=== PATIENT | male | born 1960 | race Caucasian/White ===

== ENCOUNTER 2020-04-21 12:32 | Outpatient (CLI) | payer OTHER, SELFPAY ==
[2020-04-21 12:50] LABS: Basophils Percent Auto 0.4 % (0.2-1.2); Eosinophils Absolute Auto 0.1 K/mm3 (0-0.3); Eosinophils Percent Auto 1.4 % (0-4.4); Hematocrit 47.1 % (42.0-52.0); Hemoglobin 15.6 g/dL (14.0-18.0); Immature Granulocyte Absolute 0.01 K/mm3 (0.00-0.031); Immature Granulocyte Percent A 0.1 % (0-0.5); Lymphocytes Absolute Auto 1.95 K/mm3 (0.9-3.2); Lymphocytes Percent Auto 24.5 % (18.3-44.2); Mean Corpuscular HGB Conc 33.1 g/dl (32-36); Mean Corpuscular Hemoglobin 29.4 pg (26-34); Mean Corpuscular Volume 88.9 fl (80-100); Mean Platelet Volume 11.3 fl (7.4-10.4); Monocytes Absolute Auto 0.7 K/mm3 (0.1-0.6); Monocytes Percent Auto 8.2 % (2.6-8.5); Neutrophils Absolute Auto 5.2 K/mm3 (1.3-6.7); Neutrophils Percent Auto 65.4 % (45.5-73.1); Platelet Count Result 191 k/mm3 (150-375); Red Cell Distribution Width 12.9 % (11.5-14.5)
[2020-04-21 16:48] LABS: Alanine Aminotransferase 23 U/L (4-50); Albumin Level 4.5 g/dL (3.5-5.1); Alkaline Phosphatase 101 U/L (38-126); Anion Gap 8 mmol/L (8-16); Aspartate Amino Transferase 20 U/L (17-59); Bilirubin,Total 0.7 mg/dL (0.2-1.3); Blood Urea Nitrogen 14 mg/dL (9-20); Calcium 9.4 mg/dL (8.4-10.2); Carbon Dioxide 30 mmol/L (22-30); Chloride 103 mmol/L (98-107); Estimated Glomerular Filt Rate > 60; Glucose 102 mg/dL (75-110); Potassium 4.6 mmol/L (3.4-5.0); Sodium 141 mmol/L (137-145)
== END 2020-04-21 12:33 | disposition home or self-care (01) ==
PROVIDERS: PCP Otolaryngology; Visit Provider Internal Medicine Hematology & Oncology
DX: C76.0 Malignant neoplasm of head, face and neck (principal)
CPT/HCPCS: 36415; 80053; 85025

== ENCOUNTER 2020-05-19 14:28 | Outpatient (CLI) | payer OTHER, SELFPAY ==
--- NOTE | ~2020-05-19 | MR_ITS ---
EXAMINATION: MR pituitary wo/w con EXAM DATE: 05/19/2020 15:37 INDICATION: G93.89 - Other specified disorders of brain. Pituitary mass. TECHNIQUE: Magnetic resonance imaging (MRI) of the brain/brain stem obtained without contrast. Sagit robby T1, axial diffusion, gradient echo (T2*), T1, T2, FLAIR sequences obtained. Patient was then inj ected with 20 cc intravenous Multihance contrast. A pituitary protocol was utilized including dynamic imaging through the pituitary gland during intravenous injection of contrast. Postcontrast whole bra in images obtained. FINDINGS: There is a pituitary mass measuring 1.9 x 1.6 x 2.1 cm, slightly bulging out of the sella turcica laterally but not encasing the internal carotid arteries. This is also slightly displacing th e optic chiasm in a cephalad direction. There is a tiny cystic component within this. Appearance most consistent with pituitary adenoma but craniopharyngioma or other histology not excludable. There are no areas of restricted diffusion to suggest acute infarction. There is no acute hemorrhage seen on the T2*, a hemosiderin sensitive sequence. No intraparenchymal brain mass. The ventricles a re normal in size. There are no extra-axial collections. Flow voids are seen in the cerebral arteri es on the T2-weighted sequences consistent with their expected patency. The orbits are unremarkable. Soft tissue is unremarkable. There are no areas of abnormal enhancement on the post contrast imag es. Mild ethmoid mucoperiosteal thickening. IMPRESSION: 1. Pituitary mass bulging out of sella turcica, most likely adenoma but other histology also possibl e. 2. Otherwise normal brain. Reviewed, dictated and finalized at location A. ECTIVE SIGNAL REPAIRER HELPER IMPRESSION: 1. Pituitary mass bulging out of sella turcica, most likely adenoma but other histology also possible. 2. Otherwise normal brain.
== END 2020-05-19 14:29 | disposition home or self-care (01) ==
PROVIDERS: Visit Provider Radiology Radiation Oncology
DX: G93.89 Other specified disorders of brain (principal)
CPT/HCPCS: 70553; A9577

== ENCOUNTER 2020-08-25 12:55 | Outpatient (CLI) | payer OTHER, SELFPAY ==
--- NOTE | ~2020-08-25 | PE_ITS ---
EXAMINATION: PET skull to mid thigh DATE: 08/25/2020 15:05 INDICATION: Malignant neoplasm of border of tongue. TECHNIQUE: Blood glucose level was 96 mg/dL. 11.646 mCi of 18-fluorodeoxyglucose (18-FDG) was adminis tered i.v. Low dose computed tomography (CT) images were acquired from the base of the brain to the p roximal thighs for attenuation correction and anatomic localization. Automated exposure control was e mployed. Dose-length product (DLP) was 1149 mGy-cm. Positron emission tomography (PET) images were ac quired in the same distribution. COMPARISON: CT abdomen and pelvis 07/27/2013, brain MRI 05/19/2020 FINDINGS: Head/neck: There is a sellar and suprasellar mass measuring 2.0 cm with maximum SUV of 11.7. There is a 5.7 x 5.5 cm cystic adriano mass in the high right internal jugular chain with maximum SUV of 7.6. T here is increased activity in the right nasopharynx, palatine tonsils, sublingual glands, and right s ubmandibular gland without CT correlate, likely physiologic. There is increased activity in the oral cavity with changes of extraction of many teeth. There is a 2.4 cm nodule in right thyroid lobe with maximum SUV of 2.7. Chest: There is no lung disease or pleural effusion. The heart size is normal. No pericardial effusio n. There is bilateral gynecomastia. Calcified left hilar lymph nodes are consistent with old granulom atous disease. Abdomen/pelvis/proximal thighs: The liver and spleen are normal. There are changes of cholecystectomy . The pancreas, adrenal glands, and left kidney are normal. There is a cluster of stones measuring up to 5 mm in right kidney lower pole. There are no dilated loops of bowel. The appendix is normal. The prostate is mildly enlarged. There is a left inguinal hernia containing fat. There are no pathologic ally enlarged lymph nodes. There is no free intraperitoneal fluid. There is severe lumbar spondylosis . IMPRESSION: 1. Enlarged right high internal jugular chain lymph node with increased activity, consistent with met astatic disease. 2. 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 3. Right thyroid nodule with increased activity, which may be benign or less likely malignant. Ultras ound-guided fine-needle aspiration is recommended. Reviewed, dictated and finalized at location A. O ANTENNA INSTALLER IMPRESSION: 1. Enlarged right high internal jugular chain lymph node with increased activit y, consistent with metastatic disease. 2. 2.0 cm sellar and suprasellar mass with increased activity, likely a pituita ry macroadenoma. 3. Right thyroid nodule with increased activity, which may be benign or less li nate malignant. Ultrasound-guided fine-needle aspiration is recommended.
[2020-08-25 13:37] LABS: Glucose Point of Care 96 (65-105)
== END 2020-08-25 12:56 | disposition home or self-care (01) ==
PROVIDERS: Visit Provider Radiology Radiation Oncology
DX: C02.1 Malignant neoplasm of border of tongue (principal)
CPT/HCPCS: 78815; 82948; A9552

== ENCOUNTER 2020-09-04 09:59 | Observation (INO) | payer OTHER, SELFPAY ==
[2020-09-04] VITALS (7 sets, daily range): BP systolic 126–139; BP diastolic 63–85; PULSE 57–64; RESP 12–18; TEMP 36.1–36.4; O2SAT 98–99; BMI 29.6
--- NOTE | ~2020-09-04 | XR_ITS ---
EXAMINATION: XR barium swallow modified DATE: 09/05/2020 13:55 INDICATION: Dysphagia. TECHNIQUE: The patient was given barium-containing material of multiple consistencies to swallow by t he speech pathologist while I performed fluoroscopy. Fluoroscopy exposure time was 1.1 minutes. The n umber of fluoroscopy images saved to the PACS was 1. Dose-area product was 1.079 Gy-cm^2. FINDINGS: There is no laryngeal penetration or aspiration. IMPRESSION: 1. No laryngeal penetration or aspiration. 2. Please refer to the speech therapy report for recommendations. Reviewed, dictated and finalized at location A. IGHT KNIFE MACHINE CUTTER
[2020-09-04 11:19] LABS: Basophils Percent Auto 0.2 % (0.2-1.2); Eosinophils Absolute Auto 0.2 K/mm3 (0-0.3); Eosinophils Percent Auto 2.2 % (0-4.4); Hematocrit 37.4 % (42.0-52.0); Hemoglobin 12.6 g/dL (14.0-18.0); Immature Granulocyte Absolute 0.03 K/mm3 (0.00-0.031); Immature Granulocyte Percent A 0.3 % (0-0.5); Lymphocytes Absolute Auto 1.01 K/mm3 (0.9-3.2); Lymphocytes Percent Auto 11.5 % (18.3-44.2); Mean Corpuscular HGB Conc 33.7 g/dl (32-36); Mean Corpuscular Hemoglobin 30.1 pg (26-34); Mean Corpuscular Volume 89.3 fl (80-100); Monocytes Absolute Auto 0.8 K/mm3 (0.1-0.6); Monocytes Percent Auto 8.9 % (2.6-8.5); Neutrophils Absolute Auto 6.7 K/mm3 (1.3-6.7); Neutrophils Percent Auto 76.9 % (45.5-73.1); Platelet Count Result 236 k/mm3 (150-375); Red Blood Count 4.19 M/mm3 (4.6-6.20); Red Cell Distribution Width 12.5 % (11.5-14.5); White Blood Count 8.8 K/mm3 (4.5-10.0)
[2020-09-04 11:30] LABS: Lactic Acid Reflex 0.6 mmol/L (0.7-2.1)
[2020-09-04 11:31] LABS: Alanine Aminotransferase 13 U/L (4-50); Albumin Level 3.7 g/dL (3.5-5.1); Alkaline Phosphatase 66 U/L (38-126); Anion Gap 3 mmol/L (8-16); Aspartate Amino Transferase 15 U/L (17-59); Bilirubin,Total 0.6 mg/dL (0.2-1.3); Blood Urea Nitrogen 24 mg/dL (9-20); Calcium 8.9 mg/dL (8.4-10.2); Carbon Dioxide 30 mmol/L (22-30); Chloride 102 mmol/L (98-107); Estimated Glomerular Filt Rate > 60; Glucose 104 mg/dL (75-110); Lipase 25 U/L (23-300); Magnesium 1.9 mg/dL (1.6-2.3); Phosphorus 3.3 mg/dL (2.5-4.5); Potassium 4.1 mmol/L (3.4-5.0); Sodium 135 mmol/L (137-145)
[2020-09-04] MEDS: FAMOTIDINE 20 MG/2 ML VIAL IV PUSH ×2 (11:36→22:37)
[2020-09-04] MEDS: DEXTROSE 5%/LACTATED RINGERS 1,000 ML 999 ML IV CONT (11:36)
--- NOTE | 2020-09-04 12:50 | ED.GENADULT ---
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 he is seen oncology and radiation oncologist at [facility] patient is currently getting radiation and scheduled for chemotherapy patient notes that over the last 2 or 3 days he has been having some difficulty with swallowing solids and to a degree liquids patient has not been ill denies fever chills or difficulty breathing or other complaints and on arrival presents in no distress but has concern for dehydration given that he is now having increasing difficulty with swallowing <CALEB Gurrola Last Filed: 09/04/20 12:56> Related Data Home medications: Home Medications Medication Instructions Recorded Confirmed diclofenac sodium [Voltaren] 2 g TOPICAL QID PRN 05/10/20 09/04/20 multivitamin 1 tablet PO DAILY 05/10/20 09/04/20 hydrocodone-acetaminophen [[place]] 1 - 2 tablet PO Q4-6H PRN 08/31/20 09/04/20 naproxen sodium [Aleve] 220 mg PO BID PRN 08/31/20 09/04/20 prochlorperazine maleate 10 mg PO Q6H PRN 08/31/20 09/04/20 <CALEB Gurrola Last Filed: 09/04/20 12:56> Allergies/adverse reactions: Allergies Allergy/AdvReac Type Severity Reaction Status Date / Time No Known Drug Allergies Allergy Unknown Verified 08/29/20 11:56 <CALEB Gurrola Last Filed: 09/04/20 12:56> Review of Systems Review of Systems: All systems reviewed & are unremarkable except as noted in HPI and below <Pro Rowe PA-C - Last Filed: 09/04/20 12:56> [facility] Past Medical History Medical History: Medical History (Updated 09/04/20 @ 13:30 by Maria Fernanda Renee PA-C) Arthritis Coronary artery disease Degenerative disc disease Gastroesophageal reflux disease Head and neck cancer Stage MARIANA ([id number]) well-differentiated squamous cell carcinoma, status post excision of right lateral tongue mass with positive margins. Currently receiving chemo radiotherapy per Drs. Mcmahan and Gabriella. Hepatitis C History of kidney stones History of myocardial infarction Hypertension Psychiatric disorder Bipolar disorder, depression, and anxiety. Shingles (~2004) Tobacco dependence <Pro Rowe PA-C - Last Filed: 09/04/20 12:56> Surgical History Surgical History: Surgical History (Updated 09/04/20 @ 13:25 by Maria Fernanda Renee PA-C) History of cholecystectomy History of cystoscopy With ureteroscopy and stone extraction. <Pro Rowe PA-C - Last Filed: 09/04/20 12:56> Family History Family History: Family History Grandparent Cancer Maternal Grandmother Father Cerebrovascular accident Dementia Sibling Diabetes mellitus Kidney disease <Pro Rowe PA-C - Last Filed: 09/04/20 12:56> Social History Social History: Social History (Updated 09/04/20 @ 13:28 by Maria Fernanda Renee PA-C) Social History: The patient is and lives in [place]. He has 1 daughter. Smoked up to 2 packs of cigarettes per day but now is down to about half a pack a day. Denies alcohol illicit substance abuse. Smoking packs per day: 1 Smoking cigarettes per day: 20.0 Years smoked: 30 Smoking pack-years: 30.00 Smoking status: Former smoker Tobacco type:
--- NOTE | 2020-09-04 13:45 | PM.IMHP ---
H&P: HPI History of Present Illness Date/Time: 09/04/20 13:45 Chief Complaint: Difficulty swallowing. Narrative: This is a 60-year-old male with metastatic squamous cell carcinoma of the head and neck currently undergoing adjuvant chemotherapy and radiation who presented to the emergency department earlier today from home with reports of difficulty swallowing. He received his 1st fraction of radiotherapy on 08/29/2020 and has had treatments daily for the past week. He also had his 1st round of chemotherapy I believe sometime last week. Over the last 2 to 3 days he has been experiencing difficulty swallowing solids and to some degree liquids as well and he thinks that is due to the large mass on the right side of his neck. Radiation is meant to be shrinking this tumor however the patient feels as though it is getting larger and he feels a ?knot? in his throat when he swallows. He is being admitted for IV fluid rehydration and to discuss possible PEG tube insertion although he is not keen on having this done. At the time my evaluation he has no specific complaints and specifically denies fever, chills, sweats, concerns for aspiration, cough, and shortness of breath. Review of Systems Review of Systems: Narrative: Twelve systems were reviewed with pertinent positives and negatives as per HPI. Except as documented, all other systems were reviewed and are negative. [facility] Past Medical History Medical History (Updated 09/05/20 @ 00:19 by Maria Fernanda Renee PA-C) Arthritis Coronary artery disease Degenerative disc disease Gastroesophageal reflux disease Head and neck cancer Stage MARIANA ([id number]) well-differentiated squamous cell carcinoma, status post excision of right lateral tongue mass with positive margins. Currently receiving chemo radiotherapy per Drs. Mcmahan and Gabriella. Hepatitis C History of kidney stones History of myocardial infarction Hypertension Psychiatric disorder Bipolar disorder, depression, and anxiety. Shingles (~2004) Surgical History Surgical History (Updated 09/05/20 @ 00:19 by Maria Fernanda Renee PA-C) History of cholecystectomy History of cystoscopy With ureteroscopy and stone extraction. History of orthopedic surgery Repair of left clavicle dislocation. Family History Family History Grandparent Cancer Maternal Grandmother Father Cerebrovascular accident Dementia Sibling Diabetes mellitus Kidney disease Social History Social History (Updated 09/05/20 @ 00:17 by Maria Fernanda Renee PA-C) Social History: The patient is and lives in [place]. He has 1 daughter. 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 He smoked up to 2 packs of cigarettes per day and tells me that he quit smoking although he is vague about the date. No alcohol or illicit substance use. His sister Rowan Alvarez is his emergency contact and he wishes to be a full code. Smoking packs per day: 1 Smoking cigarettes per day: 20.0 Years smoked: 30 Smoking pack-years: 30.00 Smoking status: Former smoker Tobacco type: cigarettes Second hand tobacco smoke exposure: Yes Alcohol intake: never Substance use: former Substance use type: marijuana Other substance usage details: when first diagnosed - used it for nausea Last use: last glass of alcohol 8 months ago Spiritual care concerns: No Meds Home Medications and Allergies Home Medications Medication Instructions Recorded Confirmed Type diclofenac sodium [Voltaren] 2 g TOPICAL QID PRN 05/10/20 09/04/20 History multivitamin 1 tablet PO DAILY 05/10/20 09/04/20 History hydrocodone-acetaminophen [[place]] 1 - 2 tablet PO Q4-6H PRN 08/31/20 09/04/20 History naproxen sodium [Aleve] 220 mg PO BID PRN 08/31/20 09/04/20 History prochlorperazine maleate 10 mg PO Q6H PRN 08/31/20 09/04/20 History Allergies Allergy/AdvReac Type Severity Reaction Status Date / Time No Known Drug Aller
--- NOTE | 2020-09-04 14:20 | ADMGEN ---
This patient, Chinmay Suggs, was admitted to Medical Room 242-01. Patient/family oriented to hospital policies and general routines including ID bracelet, bed and alarms, visiting hours, pain management, procedures, bathroom and other care routines, personal items, smoking policy, room service/diet, and visiting hours. Information on how to activate the Rapid Response Team has been discussed. Patient/Family are encouraged to report perceived risks to care and to ask questions if they do not understand what they are told or what they should do.
[2020-09-04] MEDS: LACTATED RINGERS 1,000 ML 125 ML IV CONT ×2 (15:59→23:59)
[2020-09-04 17:55] LABS: Prothrombin Time 13.9 Seconds (11.1-14.7)
[2020-09-04] MEDS: BISACODYL 10 MG SUPPOSITORY RECTAL (22:36)
--- NOTE | 2020-09-05 01:07 | PC.NURSE ---
Pt is refusing PEG placement at this time. Dr Pepper has been notified.
[2020-09-05 02:00] VITALS: BP 135/75; PULSE 63; RESP 16; TEMP 36.2; O2SAT 98
[2020-09-05 06:00] VITALS: BP 119/73; PULSE 71; RESP 16; TEMP 36.3; O2SAT 96
--- NOTE | 2020-09-05 06:58 | WPDGICN ---
Assessment and Plan Assessment and plan (1) Dysphagia: Code(s): R13.10 - Dysphagia, unspecified Status: Acute Assessment and Plan: EGD and possible G-tube placement has been discussed with the patient. He is however adamantly opposed to it at this time. I am available to perform endoscopy if he changes his mind (2) Head and neck cancer: Code(s): C76.0 - Malignant neoplasm of head, face and neck Status: Acute Assessment and Plan: he is a year to discuss further treatment with his oncologist. He is primarily concerned about the fact that chemotherapy has resulted in enlargement of the tumor on the right side of his jaw. GI Consult Note Consult date/time: 09/05/20 06:58 HPI: Chinmay Suggs is a 60 year old male who presented to the emergency room with complaint that he is only able to eat. He had been diagnosed with carcinoma of the tongue and had surgery twice for that. After last operation was told that probably some cells were not removed and that he might have a recurrence. Now he has a mass on the right side of his jaw. He had received radiation treatments and had 1 course of chemotherapy. After the chemotherapy the size of his mass doubled. he states that he is unable to eat but denies dysphagia. He is certain that the problem is due to the fact that most of his teeth were removed recently. He states that he is not certain why they had to be removed but he wants to have dentures or a partial placed so that he is able to chew his food. He is living basically on Ensure and other liquids at this time. Prior to his diagnosis he weighed over 300 lb but he has lost about 100 lb for the past year. He denies abdominal pain nausea vomiting or loss of appetite. He is getting constipated lately. I was called from the emergency room and told that his oncologist switched him to have a feeding tube and that this had been previously discussed with the patient. The patient is adamant that he does not want feeding tube and is fairly certain he does not need 1 at this time. Review of Systems Review of Systems: All systems reviewed & are unremarkable except as noted in HPI and below PMFSH Past Medical History Medical History Arthritis Coronary artery disease Degenerative disc disease Gastroesophageal reflux disease Head and neck cancer Stage MARIANA ([id number]) well-differentiated squamous cell carcinoma, status post excision of right lateral tongue mass with positive margins. Currently receiving chemo radiotherapy per Drs. Mcmahan and Gabriella. Hepatitis C History of kidney stones History of myocardial infarction Hypertension Psychiatric disorder Bipolar disorder, depression, and anxiety. Shingles (~2004) Surgical History Surgical History History of cholecystectomy History of cystoscopy With ureteroscopy and stone extraction. History of orthopedic surgery Repair of left clavicle dislocation. Family History Family History Grandparent Cancer Maternal Grandmother Father Cerebrovascular accident Dementia Sibling Diabetes mellitus Kidney disease Social History Social History Social History: The patient is and lives in [place]. He has 1 daughter. 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 He smoked up to 2 packs of cigarettes per day and tells me that he quit smoking although he is vague about the date. No alcohol or illicit substance use. His sister Rowan Alvarez is his emergency contact and he wishes to be a full code. Smoking packs per day: 1 Smoking cigarettes per day: 20.0 Years smoked: 30 Smoking pack-years: 30.00 Smoking status: Former smoker Tobacco type: cigarettes Second hand tobacco smoke exposure: Yes Alcohol intake: never Subst
[2020-09-05] MEDS: Acetaminophen/HYDROcodone ELIXIR (*CRX) 7.5 MG/15 ML UDC 5 MG PO ×2 (07:45→14:59)
[2020-09-05] MEDS: FAMOTIDINE 20 MG/2 ML VIAL IV PUSH (08:22)
[2020-09-05 09:35] VITALS: O2SAT 98
[2020-09-05 09:53] VITALS: BP 117/70; PULSE 52; RESP 17; TEMP 36.9; O2SAT 99
[2020-09-05 10:59] VITALS: BMI 29.5
--- NOTE | 2020-09-05 11:47 | PCNSR ---
On 09/05/20, the student,Kami Contreras, provided care and completed [facility] documentation on this patient. I have reviewed the student's documentation and agree with the findings.
[2020-09-05] MEDS: LACTATED RINGERS 1,000 ML 100 ML IV CONT (12:00)
[2020-09-05 14:00] VITALS: BP 119/69; PULSE 64; RESP 17; TEMP 36.6; O2SAT 98
--- NOTE | 2020-09-05 14:22 | PCDIET ---
Received a consult for mechanical soft diet and help planning food. Patient underwent a modified barium swallow evaluation and passed. The recommendation was Minced and Moist Level 5. We talked about minced and moist level 5 and what that means as well as gave him a handout containing more details. Also, I gave him ensure coupons. See nutrition comprehensive assessment on 09/05 for more documentation.
--- NOTE | 2020-09-05 14:45 | PCSTNOTE ---
Please refer to the Modified Barium Swallow Evaluation in the EMR.
--- NOTE | 2020-09-05 15:58 | PM.DS ---
DS: Admitting Diagnosis Admitting Diagnosis Admitting Diagnosis: dysphagia DS: Discharge Diagnosis Discharge Diagnosis (1) Dysphagia: Code(s): R13.10 - Dysphagia, unspecified Status: Acute (2) Head and neck cancer: Code(s): C76.0 - Malignant neoplasm of head, face and neck Status: Acute (3) Normocytic anemia: Code(s): D64.9 - Anemia, unspecified Status: Acute (4) Mild dehydration: Code(s): E86.0 - Dehydration Status: Acute DS: Summary Hospital Course Hospital Course: Patient is a 60 y/o male with a metastatic tongue cancer who presented to the ED 09/04/20 for dehydration and problems swallowing due to the mass on his neck and recent teeth extraction.Vitals in the ER is temp 36.4c, pulse 62, RR 14, bp 133/78, pulse o2 99. WBC 8.8, hgb 12.6, gct 37.4, platelets 236. BMP WNL except BUN 24. Lactic 0.6. Pt was admitted to the hospitalist service for IV hydration and underwent a swallow study. Pt did well with no aspiration but since he didn't have teeth it was recommended he can do pureed or minst and moist. Pt felt better the day of discharge and was egar for d/c. He was educated about the worrisome signs and symptoms to come back to the ER for and was discharged in stable condition with recommendations to f/u with his oncologists and pcp. Status at Discharge Functional status at discharge: independent ambulation Overall status at discharge: patient is back to baseline Time Spent with Patient Time attestation: Total time spent providing and/or coordinating discharge services: 38 min Time spent: Greater than 30 minutes Exam Narrative: Exam Narrative: General: Well developed well nourished patient in NAD HEENT: right neck mass, surgical changes to the tongue. Neck: supple, as above Neuro: Alert and oriented x4 CV:RRR Resp:CTA Abd: Soft, non distended. No pain to palpation. Positive bowel sounds Extremities: No swelling, erythema, or pain to palpation. DS: Data Data Completed and Pending Labs on day of discharge: Labs from last 24 hours 09/04/20 17:38 PT 13.9 INR 1.0 Discharge Plan Discharge Attending physician on discharge: Carlos A Benavides Consulting providers: Yahir Mcmahan,Jann J. ; [place] ; Pro Rowe ; Janis Cline ; Maria Fernanda Renee ; Cuauhtemoc Pinzon V. Discharging Clinician: Janis Cline Anticipated Discharge Date/Time: 09/05/20 15:51 Patient Disposition: Home, Self-Care Activity: as tolerated Diet: other - see discharge instructions Discharge Instructions: Continue your minced and moist diet as recommended by speech therapy and Meat Manager. Utilize the handouts given to you for this. This will help you chew your food and swallow. It is recommended that you see a dentist to obtain some kind of implant/bridge/denture to help you chew -continue your radiation and chemotherapy treatments as recommended. Follow up with Dr. Mcmahan. -if you notice yourself choking a lot, call your primary care physician -if you continue to lose weight, you may need supplemental feedings with a tube feeding. Contact your primary care physician or oncologist if this is something you want and they can get you set up with a GI doctor. -follow-up with your primary care physician in 1-2 weeks -worrisome signs and symptoms to come back to emergency room for: Chest pain, shortness of breath, fevers 100.4 or greater, progressive significant weakness, inability to eat or drink, or any other worrisome symptom. Stand Alone Forms: General Discharge Information Follow-up/Referrals: Yahir Mcmahan MD [Physician] - Keep Reg. Scheduled Appt. Discharge Medications: Continued hydrocodone-acetaminophen 5-325 mg Tablet 1 - 2 tablet PO Q4-6H PRN (Reason: Pain) RF: 0 prochlorperazine maleate 10 mg Tablet 10 mg PO Q6H PRN (Reason: Nausea) RF: 0 naproxen sodium [Aleve] 220 mg Capsule 220 mg PO BID P
--- NOTE | 2020-09-05 17:44 | PDONCCN ---
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 Patient started radiation therapy treatment along with chemotherapy with cisplatin received 1st treatment on August 31. He came into the hospital with complain of difficulty swallowing solid food and worsening of the right neck nodule. He has lost more than 10 lb weight since the start of the treatment. He seems to be quite dehydrated. He denies any fever chills. Denies any cough and chest pain. Denies any shortness of breath. He was admitted to the hospital for IV hydration and possible PEG tube placement for the feeding purpose. Review of Systems - Review of Systems All systems reviewed & are unremarkable except as noted in [facility] and [facility] Medical History: Medical History (Last Reviewed 09/05/20 @ 07:00 by Jann Pepper MD) Arthritis Coronary artery disease Degenerative disc disease Gastroesophageal reflux disease Head and neck cancer Stage MARIANA ([id number]) well-differentiated squamous cell carcinoma, status post excision of right lateral tongue mass with positive margins. Currently receiving chemo radiotherapy per Drs. Mcmahan and Gabriella. Hepatitis C History of kidney stones History of myocardial infarction Hypertension Psychiatric disorder Bipolar disorder, depression, and anxiety. Shingles Onset Date: ~2004 Surgical History: Surgical History (Last Reviewed 09/05/20 @ 07:00 by Jann Pepper MD) History of cholecystectomy History of cystoscopy With ureteroscopy and stone extraction. History of orthopedic surgery Repair of left clavicle dislocation. Family History: Family History (Last Reviewed 09/05/20 @ 07:00 by Jann Pepper MD) Grandparent Cancer Maternal Grandmother Father Cerebrovascular accident Dementia Sibling Diabetes mellitus Kidney disease - Social History Social History: Social History (Last Reviewed 09/05/20 @ 07:00 by Jann Pepper MD) Alcohol Use: Alcohol intake: never Substance Use: Substance use: former Substance use type: marijuana Other substance usage details: when first diagnosed - used it for nausea Last use: last glass of alcohol 8 months ago Others: Spiritual care concerns: No Smoking Status: Smoking status: Former smoker Tobacco type: cigarettes Second hand tobacco smoke exposure: Yes Approximate Smoking End Date: August, Smoking Pack-years: Smoking packs per day: 1 Smoking cigarettes per day: 20.0 Years smoked: 30 Smoking pack-years: 30.00 Meds Home Medications Medication Instructions Recorded Confirmed Type diclofenac sodium [Voltaren] 2 g TOPICAL QID PRN 05/10/20 09/04/20 History multivitamin 1 tablet PO DAILY 05/10/20 09/04/20 History hydrocodone-acetaminophen 1 - 2 tablet PO Q4-6H PRN 08/31/20 09/04/20 History naproxen sodium [Aleve] 220 mg PO BID PRN 08/31/20 09/04/20 History prochlorperazine maleate 10 mg PO Q6H PRN 08/31/20 09/04/20 History Allergies Allergy/AdvReac Type Severity Reaction Status Date / Time No Known Drug Allergies Allergy Unknown Verified 08/29/20 11:56 Results - Labs CBC & Chem 7: 09/04/20 11:08 09/04/20 11:08 Assessment and Plan - Additional Plan This stage MARIANA well-differentiated squamous cell carcinoma of the tongue status post excision done on February 17, 2020. Patient is currently on chemotherapy treatment with cisplatin and received 1st cycle on August 31. He is also receiving radiation therapy treatment. On my examination the right neck mass a new seems to be slightly larger. He is having difficulty swallowing as he has dental extraction done
== END 2020-09-05 18:22 | disposition home or self-care (01) ==
LOC: ANHED 13:03 → ANH2MED 13:40
PROVIDERS: Emergency Medicine Emergency Medical Services; Internal Medicine Gastroenterology; Admitting Provider Internal Medicine; Emergency Provider Emergency Medicine; Visit Provider Physician Assistant
DX: R13.10 Dysphagia, unspecified (principal); C76.0 Malignant neoplasm of head, face and neck; C77.9 Secondary and unspecified malignant neoplasm of lymph node, unspecified; D64.9 Anemia, unspecified; E86.0 Dehydration; I25.10 Atherosclerotic heart disease of native coronary artery without angina pectoris; K21.9 Gastro-esophageal reflux disease without esophagitis; I10 Essential (primary) hypertension; I25.2 Old myocardial infarction; F31.9 Bipolar disorder, unspecified; F41.9 Anxiety disorder, unspecified; B19.20 Unspecified viral hepatitis C without hepatic coma; F17.210 Nicotine dependence, cigarettes, uncomplicated
CPT/HCPCS: 36415; 80053; 83605; 83690; 83735; 84100; 85025; 85610; 92611; 96361; 96374; 96375; 96376; 99285; A9270; G0378; G0379; J0131; J7120; J7121

== ENCOUNTER 2020-09-08 13:45 | Emergency (ER) | payer OTHER, SELFPAY ==
[2020-09-08 13:49] VITALS: BP 122/81; PULSE 70; RESP 14; TEMP 36.9; O2SAT 100
[2020-09-08 14:01] LABS: Basophils Percent Auto 0.3 % (0.2-1.2); Eosinophils Absolute Auto 0.1 K/mm3 (0-0.3); Eosinophils Percent Auto 0.8 % (0-4.4); Hematocrit 40.5 % (42.0-52.0); Hemoglobin 13.9 g/dL (14.0-18.0); Immature Granulocyte Absolute 0.05 K/mm3 (0.00-0.031); Immature Granulocyte Percent A 0.5 % (0-0.5); Lymphocytes Absolute Auto 0.93 K/mm3 (0.9-3.2); Lymphocytes Percent Auto 9.1 % (18.3-44.2); Mean Corpuscular HGB Conc 34.3 g/dl (32-36); Mean Corpuscular Hemoglobin 29.8 pg (26-34); Mean Corpuscular Volume 86.9 fl (80-100); Mean Platelet Volume 10.7 fl (7.4-10.4); Monocytes Absolute Auto 0.7 K/mm3 (0.1-0.6); Monocytes Percent Auto 6.8 % (2.6-8.5); Neutrophils Absolute Auto 8.5 K/mm3 (1.3-6.7); Neutrophils Percent Auto 82.5 % (45.5-73.1); Platelet Count Result 259 k/mm3 (150-375); Red Blood Count 4.66 M/mm3 (4.6-6.20); Red Cell Distribution Width 12.2 % (11.5-14.5); White Blood Count 10.3 K/mm3 (4.5-10.0)
[2020-09-08 14:14] LABS: Alanine Aminotransferase 23 U/L (4-50); Albumin Level 4.1 g/dL (3.5-5.1); Alkaline Phosphatase 77 U/L (38-126); Anion Gap 8 mmol/L (8-16); Aspartate Amino Transferase 21 U/L (17-59); Bilirubin,Total 0.6 mg/dL (0.2-1.3); Blood Urea Nitrogen 30 mg/dL (9-20); Calcium 9.2 mg/dL (8.4-10.2); Carbon Dioxide 30 mmol/L (22-30); Chloride 100 mmol/L (98-107); Estimated CRCL calculation 90 ml/min; Estimated Glomerular Filt Rate > 60; Glucose 108 mg/dL (75-110); Lipase 26 U/L (23-300); Potassium 3.6 mmol/L (3.4-5.0); Sodium 138 mmol/L (137-145)
[2020-09-08 14:19] VITALS: BP 121/86; PULSE 72
[2020-09-08 14:23] VITALS: BP 133/93; PULSE 70
[2020-09-08 14:24] VITALS: BP 122/76; PULSE 92
[2020-09-08] MEDS: SODIUM CHLORIDE 0.9% IV 1,000 ML 999 ML IV CONT (14:37)
[2020-09-08 14:53] VITALS: BP 154/90; PULSE 63; RESP 23; O2SAT 100
--- NOTE | 2020-09-08 16:50 | ED.GENADULT ---
HPI - General Adult General Chief complaint: Nausea/Vomiting/Diarrhea Stated complaint: facial swelling, vomitting, diarrhea Time Seen by Provider: 09/08/20 14:00 History of Present Illness HPI narrative: Patient is a 60-year-old male who presents ER with complaints of nausea and vomiting as well as some diarrhea. Reports nausea vomiting began after leaving the hospital 3 days ago. 2 days ago he developed some loose stools. Reports they vary in size. They are yellow-brown in nature. No blood. Patient reports he has been taking Compazine without improvement of his nausea. Patient was recently admitted for dehydration. They discussed potential feeding tube placement for his nausea but he declined. He did pass a swallow study while in the hospital. They recommended he eat a minced pur?ed diet given the fact that he had his teeth extracted recently. Patient also has a large mass to the right neck that has apparently significantly increased in size since receiving his first chemo radiation has been a source of frustration for him. Related Data Home Medications Medication Instructions Recorded Confirmed diclofenac sodium [Voltaren] 2 g TOPICAL QID PRN 05/10/20 09/04/20 multivitamin 1 tablet PO DAILY 05/10/20 09/04/20 hydrocodone-acetaminophen 1 - 2 tablet PO Q4-6H PRN 08/31/20 09/04/20 naproxen sodium [Aleve] 220 mg PO BID PRN 08/31/20 09/04/20 prochlorperazine maleate 10 mg PO Q6H PRN 08/31/20 09/04/20 Allergies Allergy/AdvReac Type Severity Reaction Status Date / Time No Known Drug Allergies Allergy Unknown Verified 08/29/20 11:56 Review of Systems Review of Systems: All systems reviewed & are unremarkable except as noted in HPI and below Constitutional: Constitutional: Denies chills, Denies fever(s) and Denies weakness ENT: Denies nasal congestion and Denies sore throat Comments: Neck mass Cardiovascular: Cardiovascular: Denies chest pain and Denies radiating jaw, neck or arm pain Respiratory: Respiratory: Denies chest congestion, Denies cough and Denies dyspnea Gastrointestinal: Gastrointestinal: Denies abdominal pain, Reports diarrhea, Reports nausea and Reports vomiting PMFSH Past Medical History Medical History Arthritis Coronary artery disease Degenerative disc disease Gastroesophageal reflux disease Head and neck cancer Stage MARIANA ([id number]) well-differentiated squamous cell carcinoma, status post excision of right lateral tongue mass with positive margins. Currently receiving chemo radiotherapy per Drs. Mcmahan and Gabriella. Hepatitis C History of kidney stones History of myocardial infarction Hypertension Psychiatric disorder Bipolar disorder, depression, and anxiety. Shingles (~2004) Surgical History Surgical History History of cholecystectomy History of cystoscopy With ureteroscopy and stone extraction. History of orthopedic surgery Repair of left clavicle dislocation. Family History Family History Grandparent Cancer Maternal Grandmother Father Cerebrovascular accident Dementia Sibling Diabetes mellitus Kidney disease Social History Social History Social History: The patient is and lives in [place]. He has 1 daughter. 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 He smoked up to 2 packs of cigarettes per day and tells me that he quit smoking although he is vague about the date. No alcohol or illicit substance use. His sister Rowan Alvarez is his emergency contact and he wishes to be a full code. Smoking packs per day: 1 Smoking cigarettes per day: 20.0 Years smoked: 30 Smoking pack-years: 30.00 Smoking status: Former smoker Tobacco type: cigarettes Second hand tobacco smoke exposure: Yes Alcohol intake: never Substance use: former Substa
[2020-09-08 17:31] LABS: Add Urine Microscopic? YES; Amorphous Sediment Urine Few; Appearance Urine Cloudy (Clear); Bilirubin Urine Negative (Negative); Blood Urine Negative (Negative); Color Urine Yellow (Yellow); Glucose Urine UA 1+ mg/dL (Negative); Ketones Urine 1+ mg/dL (Negative); Leukocyte Esterase Ur Negative LEU/UL (Negative); Mucus Urine Heavy /lpf; Nitrate Urine Negative (Negative); Protein Urine 2+ mg/dL (Negative); Specific Grav Ur 1.024 (1.001-1.035); Urobilinogen Urine Negative mg/dL (<2.0)
[2020-09-08 18:30] VITALS: PULSE 67; RESP 16; O2SAT 95
== END 2020-09-08 18:30 | disposition home or self-care (01) ==
PROVIDERS: Emergency Provider Emergency Medicine
DX: K52.9 Noninfective gastroenteritis and colitis, unspecified (principal); M19.90 Unspecified osteoarthritis, unspecified site; I25.10 Atherosclerotic heart disease of native coronary artery without angina pectoris; K21.9 Gastro-esophageal reflux disease without esophagitis; Z87.442 Personal history of urinary calculi; I25.2 Old myocardial infarction; I10 Essential (primary) hypertension; Z86.19 Personal history of other infectious and parasitic diseases; C02.9 Malignant neoplasm of tongue, unspecified; Z79.899 Other long term (current) drug therapy; Z87.891 Personal history of nicotine dependence
CPT/HCPCS: 36415; 80053; 81001; 83690; 85025; 87086; 96360; 99283; J7030

== ENCOUNTER 2020-10-01 09:23 | Inpatient (IN) | payer OTHER, SELFPAY ==
--- NOTE | ~2020-10-01 | US_ITS ---
EXAMINATION: US FNA w image guidance DATE: 10/04/2020 10:55 INDICATION: Right thyroid nodule. TECHNIQUE: The procedure and its benefits and risks were discussed with the patient. Risks specifically discusse d included bleeding. The patient verbalized understanding of the risks and agreed to proceed. The nec k was prepped and draped in the usual sterile manner. 1% lidocaine was used for local anesthesia. 5 passes were made with a 25G needle into the lesion under ultrasound guidance. There were no immedia te complications. The patient understood to call the ordering physician for results after a few days and verbalized that understanding. FINDINGS: Grayscale ultrasound images demonstrate needles advanced into a 3.1 cm right thyroid nodule for biops y. IMPRESSION: 1. Ultrasound-guided fine needle aspiration of a right thyroid nodule. Reviewed, dictated and finalized at location A.
--- NOTE | ~2020-10-01 | CT_ITS ---
EXAMINATION: CT soft tissue neck chest w DATE: 10/02/2020 09:33 INDICATION: Right neck pain. TECHNIQUE: Computed tomography (CT) of the neck and chest was performed with 75 mL Omnipaque-350 intr avenous contrast. Automated exposure control and iterative reconstruction technique were employed. Th e dose-length product was 1280.71 mGy-cm. COMPARISON: PET CT 08/25/2020 FINDINGS: CT NECK: There is a 6.5 x 7.0 cm necrotic adriano mass involving right high and mid internal jugular ch ains, worsened from 5.4 x 5.1 cm on 08/25/20. 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 There is a mildly enlarged right mid internal jugular chain lymph node. There is a 3.9 x 1.9 x 2.1 cm right thyroid nodule. There is plaque in the proximal internal carotid arteries with 0 % stenosis relative to normal distal artery lumen diameters. There is a sellar and suprasellar mass m easuring 2.2 cm. There is thickening of the pharyngeal mucosal space, consistent with changes of radi ation therapy. There is moderate cervical spondylosis. The paranasal sinuses are clear. The mastoid a ir cells are normal. CT CHEST: There is mild emphysema. There is mild atelectasis bilaterally. A calcified left lung nodul e and calcified left hilar lymph nodes are consistent with old granulomatous disease. There are 3 nod ules at the minor fissure with the largest measuring 4 mm, likely benign. No pleural effusion. The he art size is normal. There are coronary artery calcifications. No pericardial effusion. There is bilat eral gynecomastia. There are changes of cholecystectomy. There are multiple old healed right rib frac tures. There is mild thoracic spondylosis. IMPRESSION: 1. Worsened right internal jugular chain lymphadenopathy, consistent with metastatic disease. 2. 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 3. Stable 3.9 cm right thyroid nodule, which may be benign or less likely malignant. Ultrasound-guide d fine-needle aspiration is recommended. Reviewed, dictated and finalized at location A. IMPRESSION: 1. Worsened right internal jugular chain lymphadenopathy, consistent with metas tatic disease. 2. 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 3. Stable 3.9 cm right thyroid nodule, which may be benign or less likely malig nant. Ultrasound-guided fine-needle aspiration is recommended.
[2020-10-01 09:27] VITALS: BP 126/65; PULSE 62; RESP 20; TEMP 36.4; O2SAT 100
[2020-10-01] MEDS: HYDROmorphone HCL INJ (*CRX) 1 MG/ML SYR IV PUSH (09:53)
[2020-10-01] MEDS: SODIUM CHLORIDE 0.9% IV 1,000 ML 150 ML IV CONT (09:53)
[2020-10-01] MEDS: ONDANSETRON INJ 4 MG/2 ML VIAL IV PUSH (09:53)
[2020-10-01 10:09] LABS: Basophils Percent Auto 0.2 % (0.2-1.2); Eosinophils Percent Auto 0.3 % (0-4.4); Hematocrit 39.5 % (42.0-52.0); Hemoglobin 13.2 g/dL (14.0-18.0); Immature Granulocyte Absolute 0.06 K/mm3 (0.00-0.031); Immature Granulocyte Percent A 0.5 % (0-0.5); Lymphocytes Percent Auto 5.5 % (18.3-44.2); Mean Corpuscular HGB Conc 33.4 g/dl (32-36); Mean Corpuscular Hemoglobin 29.8 pg (26-34); Mean Corpuscular Volume 89.2 fl (80-100); Mean Platelet Volume 10.3 fl (7.4-10.4); Monocytes Absolute Auto 0.7 K/mm3 (0.1-0.6); Monocytes Percent Auto 5.2 % (2.6-8.5); Neutrophils Absolute Auto 11.3 K/mm3 (1.3-6.7); Neutrophils Percent Auto 88.3 % (45.5-73.1); Platelet Count Result 247 k/mm3 (150-375); Red Blood Count 4.43 M/mm3 (4.6-6.20); Red Cell Distribution Width 13.3 % (11.5-14.5); White Blood Count 12.8 K/mm3 (4.5-10.0)
[2020-10-01 10:25] LABS: Alanine Aminotransferase 11 U/L (4-50); Albumin Level 4.2 g/dL (3.5-5.1); Alkaline Phosphatase 92 U/L (38-126); Anion Gap 10 mmol/L (8-16); Aspartate Amino Transferase 15 U/L (17-59); Bilirubin,Total 0.6 mg/dL (0.2-1.3); Blood Urea Nitrogen 26 mg/dL (9-20); Calcium 9.3 mg/dL (8.4-10.2); Carbon Dioxide 24 mmol/L (22-30); Chloride 104 mmol/L (98-107); Estimated CRCL calculation 110 ml/min; Estimated Glomerular Filt Rate > 60; Glucose 120 mg/dL (75-110); Potassium 4.3 mmol/L (3.4-5.0); Sodium 138 mmol/L (137-145)
[2020-10-01 11:35] VITALS: BP 126/81; PULSE 55; RESP 18; O2SAT 96
--- NOTE | 2020-10-01 11:58 | ED.GENADULT ---
HPI - General Adult General Chief complaint: Unspecified Stated complaint: MASS ON NECK Time Seen by Provider: 10/01/20 09:45 Source: patient Mode of arrival: ambulatory Limitations: no limitations History of Present Illness HPI narrative: 60-year-old with a history of head and neck cancer on chemotherapy here with complaints of increased pain and swelling in the right parotid area for past few days. Patient states that he has been taking hydrocodone with no relief. He denies any fever or chills. Onset (ago): day(s) (1) Location: face Radiation: neck Severity: moderate Quality: aching Pain Consistency: constant Relieving factors: none Exacerbating factors: none Associated symptoms: denies other symptoms Related Data Home Medications Medication Instructions Recorded Confirmed diclofenac sodium [Voltaren] 2 g TOPICAL QID PRN 05/10/20 09/04/20 multivitamin 1 tablet PO DAILY 05/10/20 09/04/20 hydrocodone-acetaminophen 1 - 2 tablet PO Q4-6H PRN 08/31/20 09/04/20 naproxen sodium [Aleve] 220 mg PO BID PRN 08/31/20 09/04/20 prochlorperazine maleate 10 mg PO Q6H PRN 08/31/20 09/04/20 Allergies Allergy/AdvReac Type Severity Reaction Status Date / Time No Known Allergies Allergy Verified 10/01/20 09:36 Review of Systems Review of Systems: All systems reviewed & are unremarkable except as noted in HPI and below Constitutional: Constitutional: Reports no additional constitutional complaints Eyes: Eyes: Reports no additional eye complaints ENT: Reports as per HPI Cardiovascular: Cardiovascular: Reports no additional cardiovascular complaints Respiratory: Respiratory: Reports no additional respiratory complaints Gastrointestinal: Gastrointestinal: Reports no additional gastrointestinal complaints Musculoskeletal: Musculoskeletal: Reports no additional musculoskeletal complaints Neurologic: Reports system reviewed and no additional complaints, except as documented PMF Past Medical History Medical History Arthritis Coronary artery disease Degenerative disc disease Gastroesophageal reflux disease Head and neck cancer Stage MARIANA ([id number]) well-differentiated squamous cell carcinoma, status post excision of right lateral tongue mass with positive margins. Currently receiving chemo radiotherapy per Drs. Mcmahan and Gabriella. Hepatitis C History of kidney stones History of myocardial infarction Hypertension Psychiatric disorder Bipolar disorder, depression, and anxiety. Shingles (~2004) Surgical History Surgical History History of cholecystectomy History of cystoscopy With ureteroscopy and stone extraction. History of orthopedic surgery Repair of left clavicle dislocation. Family History Family History Grandparent Cancer Maternal Grandmother Father Cerebrovascular accident Dementia Sibling Diabetes mellitus Kidney disease Social History Social History Social History: The patient is and lives in [place]. He has 1 daughter. 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 He smoked up to 2 packs of cigarettes per day and tells me that he quit smoking although he is vague about the date. No alcohol or illicit substance use. His sister Rowan Alvarez is his emergency contact and he wishes to be a full code. Smoking packs per day: 1 Smoking cigarettes per day: 20.0 Years smoked: 30 Smoking pack-years: 30.00 Smoking status: Former smoker Tobacco type: cigarettes Second hand tobacco smoke exposure: Yes Alcohol intake: never Substance use: former Substance use type: marijuana Other substance usage details: when first diagnosed - used it for nausea Last use: last glass of alcohol 8 months ago Spiritual care concerns: No Exam Narrative: Exam Narrative
--- NOTE | 2020-10-01 13:00 | ADMGEN ---
This patient, Chinmay Suggs, was admitted to Medical Room 345-01. Patient/family oriented to hospital policies and general routines including ID bracelet, bed and alarms, visiting hours, pain management, procedures, bathroom and other care routines, personal items, smoking policy, room service/diet, and visiting hours. Information on how to activate the Rapid Response Team has been discussed. Patient/Family are encouraged to report perceived risks to care and to ask questions if they do not understand what they are told or what they should do.
[2020-10-01] MEDS: HYDROmorphone HCL INJ (*CRX) 1 MG/ML SYR 0.5 MG IV PUSH ×3 (13:07→21:38)
[2020-10-01] MEDS: SODIUM CHLORIDE 0.9% IV 1,000 ML 75 ML IV CONT ×2 (13:07→13:38)
[2020-10-01 13:13] VITALS: BMI 27.7
--- NOTE | 2020-10-01 13:30 | PM.IMHP ---
H&P: HPI History of Present Illness Date/Time: 10/01/20 13:30 Chief Complaint: Right-sided neck pain Narrative: This is a 60-year-old male with metastatic squamous cell carcinoma of the head and neck who presented to the emergency department earlier today via private vehicle with complaints of right-sided neck pain. He had his 1st radiation and chemotherapy treatments at the beginning of August 2020 but ?I put my treatment on hold? because he did not see any meaningful change in the size of a significantly enlarged lymph node in the right internal jugular chain after those lone treatment. He perseverates on the fact that ?nobody has biopsied the mass so how do they know what they are treating?? despite him carrying the diagnosis of metastatic squamous cell carcinoma. In any event he has pretty significant pain on the right side of his neck that he describes as a constant squeezing and occasionally stabbing/tearing pain. More recently he feels as though the pain is starting to travel down his neck and on to his anterior chest. In addition to hydrocodone he has been taking up to 8! Aleve per day without much benefit and decided to come in today for evaluation. He received received 1 dose of IV Dilaudid in the emergency department which helped quite a bit and he is hoping that perhaps he could get a prescription for oral Dilaudid. It appears that he was admitted to the hospital for observation due to ?intractable pain? despite having only received 1 dose of IV pain medication in the emergency department. He denies fever and chills but has had some sweats the past couple of days. He denies odynophagia, dysphagia, and concerns for aspiration. No shortness of breath, stridor, or wheezing. He denies chest pain, pleuritic pain, and shortness of breath. Of note it sounds like the patient is having difficulties finding a place to live and he has been staying at a local motel. He tells me that his insurance company has approved for him to go to [place] for rehab but he has not yet called them to initiate that. Review of Systems Review of Systems: Narrative: Twelve systems were reviewed with pertinent positives and negatives as per HPI. He denies headache. No diplopia. Denies vertigo. No dysphagia or odynophagia. He denies concerns for aspiration. No chest or pleuritic pain. No shortness of breath. Denies nausea, vomiting, and diarrhea. No dysuria. Except as documented, all other systems were reviewed and are negative. [facility] Past Medical History Medical History (Updated 10/01/20 @ 21:14 by Maria Fernanda Renee PA-C) Arthritis Chronic anemia Coronary artery disease Degenerative disc disease Gastroesophageal reflux disease Head and neck cancer Stage MARIANA ([id number]) well-differentiated squamous cell carcinoma, status post excision of right lateral tongue mass with positive margins. He has only received 1 fraction of radiation 1 chemotherapy treatment as of 10/01/2020. He is followed by Drs. Mcmahan and Gabriella. Hepatitis C History of kidney stones History of myocardial infarction Hypertension Psychiatric disorder Bipolar disorder, depression, and anxiety. Shingles (~2004) Surgical History Surgical History History of cholecystectomy History of cystoscopy With ureteroscopy and stone extraction. History of orthopedic surgery Repair of left clavicle dislocation. Family History Family History Grandparent Cancer Maternal Grandmother Father Cerebrovascular accident Dementia Sibling Diabetes mellitus Kidney disease Social History Social History (Updated 10/01/20 @ 21:09 by Maria Fernanda Renee PA-C) Social History: The patient is and is currently staying in a local motel. He has 1 daughter. 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 He smoked up to 2 packs of cigarettes per day and tells me that he quit smo
[2020-10-01 13:48] VITALS: BP 140/89; PULSE 58; RESP 20; TEMP 36.1; O2SAT 100; BMI 28.2
[2020-10-01] MEDS: HYDROcodone/acetaminophen (*CRX) 5-325 MG TABLET 1 TAB PO ×2 (18:15→23:30)
[2020-10-01 20:00] VITALS: BP 127/69; PULSE 66; RESP 18; TEMP 36.9; O2SAT 100
[2020-10-02] MEDS: HYDROmorphone HCL INJ (*CRX) 1 MG/ML SYR 0.5 MG IV PUSH ×5 (02:01→23:57)
[2020-10-02 02:54] VITALS: O2SAT 93
[2020-10-02 05:27] LABS: Hematocrit 33.9 % (42.0-52.0); Hemoglobin 11.1 g/dL (14.0-18.0); Mean Corpuscular HGB Conc 32.7 g/dl (32-36); Mean Corpuscular Hemoglobin 29.3 pg (26-34); Mean Corpuscular Volume 89.4 fl (80-100); Mean Platelet Volume 10.3 fl (7.4-10.4); Platelet Count Result 221 k/mm3 (150-375); Red Blood Count 3.79 M/mm3 (4.6-6.20); Red Cell Distribution Width 13.5 % (11.5-14.5); White Blood Count 10.8 K/mm3 (4.5-10.0)
[2020-10-02 05:48] LABS: Alanine Aminotransferase 7 U/L (4-50); Albumin Level 3.5 g/dL (3.5-5.1); Alkaline Phosphatase 68 U/L (38-126); Anion Gap 4 mmol/L (8-16); Aspartate Amino Transferase 12 U/L (17-59); Bilirubin,Total 0.2 mg/dL (0.2-1.3); Blood Urea Nitrogen 25 mg/dL (9-20); Calcium 8.7 mg/dL (8.4-10.2); Carbon Dioxide 29 mmol/L (22-30); Chloride 104 mmol/L (98-107); Estimated CRCL calculation 99 ml/min; Estimated Glomerular Filt Rate > 60; Glucose 98 mg/dL (75-110); Magnesium 1.8 mg/dL (1.6-2.3); Potassium 4.6 mmol/L (3.4-5.0); Sodium 137 mmol/L (137-145)
[2020-10-02 06:00] VITALS: BP 123/64; PULSE 57; RESP 16; TEMP 36; O2SAT 98
[2020-10-02] MEDS: MORPHINE SULFATE (*CRX) 2 MG/ML INJ IV PUSH (08:05)
--- NOTE | 2020-10-02 09:15 | PC.NURSE ---
Patient to CT via hospital wheelchair.
--- NOTE | 2020-10-02 09:35 | PC.NURSE ---
Patient returned from CT via hospital wheelchair.
[2020-10-02] MEDS: MULTIVITAMINS THERAPEUTIC TAB (*BKC) 1 TABLET PO (10:53)
[2020-10-02] MEDS: HYDROcodone/acetaminophen (*CRX) 10-325 MG TABLET 1 TAB PO ×3 (11:02→23:10)
--- NOTE | 2020-10-02 11:17 | PM.IMPN ---
Progress Note: A&P Assessment and Plan (1) Cancer related pain: Code(s): G89.3 - Neoplasm related pain (acute) (chronic) Status: Acute Assessment and Plan: The patient has pain at the side of a markedly enlarged lymph node on the right side of the neck. Patient very concerned on increased size and subsequent increase in pain despite some treatment as outpatient with chemo/radiation. Patient encouraged to resume chemo and radiation CL as that will likely help shrink the mass. Will increase [place] prn, as well as, Dilaudid for breakthrough pain. Patient was educated about excessive use of NSAIDs Monitor overnight Will obtain Oncology consultation in am for further education and discussion of treatment plan Await neck/chest CTA results (2) Head and neck cancer: Code(s): C76.0 - Malignant neoplasm of head, face and neck Status: Acute Assessment and Plan: Plan is as detailed above. (3) Chronic anemia: Code(s): D64.9 - Anemia, unspecified Status: Acute Assessment and Plan: Hemoglobin and hematocrit are stable on review of previous labs. (4) Leukocytosis: Code(s): D72.829 - Elevated white blood cell count, unspecified Status: Acute Assessment and Plan: WBC improved to 10.8k Await results of CTA of the neck and soft tissues with contrast to rule out underlying infection. No indication of any other underlying infection thus no need for antibiotics at this time. Subjective Date/time seen: 10/02/20 11:17 Interval history: Patient is a 60-year-old male with metastatic squamous cell carcinoma of the head and neck who is seen in follow up for persistent right sided neck pain and increased swelling/growth of his right neck mass. Patient states he is still in significant pain. He is very fixated on having his neck biopsied despite educating patient about his diagnosis and outpatient for same; he is agreeable for oncology consultation to discuss further plan of care. In terms of his neck pain, he feels that his mass is heavy and pulls on his neck and gives him significant pain despite using his prescribed [place] and extensive use of Aleve. He does not have f/c, difficulty swallowing, difficulty breathing, or drainage from his mass. No other complaints. Denies headaches, dizziness, lightheadedness, cp/palpitations, sob/cough, n/v/d/c, abd pain, changes in BMs, dysuria, hematuria, cloudy urine, calf pain/swelling. Review of Systems Review of Systems: All systems reviewed & are unremarkable except as noted in HPI and below Exam Narrative: Exam Narrative: General: Patient resting supine in bed in no acute distress. HEENT: Normocephalic, EOMI, oral mucosa moist.S/p resection of mass on right tongue. Neck: Supple. Large, firm, nodular non mobile mass near the angle of the right jaw extending down the neck and slightly behind the ear. Evidence of previous radiation with skin changes. The area is slightly warm to touch. Cardiovascular: Rate and rhythm are regular. No notable murmur, rub, or gallop. Respiratory: Lungs clear to auscultation all jordan. Non-labored breathing. Abdomen: Soft, non-tender, non-distended, bowel sounds present. Extremities: Peripheral pulses intact. No edema. NTTP b/l calves Neuro: No focal neurological deficits. Speech is clear. Objective Data Vital Signs Vital Signs: Last Vital Signs Temp 96.8 F L 10/02/20 06:00 Pulse 57 L 10/02/20 06:00 Resp 16 10/02/20 06:00 BP 123/64 10/02/20 06:00 Pulse Ox 98 10/02/20 06:00 Intake/Output Intake/Output: Intake & Output 09/29/20 09/30/20 10/01/20 10/02/20 23:59 23:59 23:59 23:59 Intake Total 1790 1200 Balance 1790 1200 Meds/Results Medications: Active Medications Generic Name Dose Route Start Last Admin
[2020-10-02 14:00] VITALS: BP 130/68; PULSE 60; RESP 16; TEMP 36.1; O2SAT 99
[2020-10-02] MEDS: polyethylene glycoL 3350 17 GM POWD.PACK PO (14:51)
[2020-10-02 21:07] VITALS: BP 121/71; PULSE 68; RESP 16; TEMP 36.6; O2SAT 97
[2020-10-03] MEDS: HYDROmorphone HCL INJ (*CRX) 1 MG/ML SYR 0.5 MG IV PUSH ×3 (04:14→13:31)
[2020-10-03] MEDS: HYDROcodone/acetaminophen (*CRX) 10-325 MG TABLET 1 TAB PO ×2 (05:13→11:19)
[2020-10-03 05:27] VITALS: BP 132/76; PULSE 64; RESP 18; TEMP 35.9; O2SAT 98
[2020-10-03 05:48] LABS: Hematocrit 34.6 % (42.0-52.0); Hemoglobin 11.7 g/dL (14.0-18.0); Mean Corpuscular HGB Conc 33.8 g/dl (32-36); Mean Corpuscular Hemoglobin 29.7 pg (26-34); Mean Corpuscular Volume 87.8 fl (80-100); Mean Platelet Volume 10.1 fl (7.4-10.4); Platelet Count Result 218 k/mm3 (150-375); Red Blood Count 3.94 M/mm3 (4.6-6.20); Red Cell Distribution Width 13.3 % (11.5-14.5); White Blood Count 10.7 K/mm3 (4.5-10.0)
[2020-10-03 06:10] LABS: Anion Gap 6 mmol/L (8-16); Blood Urea Nitrogen 14 mg/dL (9-20); Calcium 8.7 mg/dL (8.4-10.2); Carbon Dioxide 27 mmol/L (22-30); Chloride 102 mmol/L (98-107); Estimated CRCL calculation 144 ml/min; Estimated Glomerular Filt Rate > 60; Glucose 103 mg/dL (75-110); Magnesium 1.6 mg/dL (1.6-2.3); Sodium 135 mmol/L (137-145)
[2020-10-03 06:29] LABS: Potassium 3.9 mmol/L (3.4-5.0)
[2020-10-03] MEDS: polyethylene glycoL 3350 17 GM POWD.PACK PO (08:13)
[2020-10-03] MEDS: ENOXAPARIN 40 MG/0.4 ML SYRINGE SUB-Q (08:13)
[2020-10-03] MEDS: MULTIVITAMINS THERAPEUTIC TAB (*BKC) 1 TABLET PO (08:13)
[2020-10-03 14:00] VITALS: BP 132/70; PULSE 66; RESP 16; TEMP 36.8; O2SAT 98
--- NOTE | 2020-10-03 14:14 | PM.IMPN ---
Progress Note: A&P Assessment and Plan (1) Cancer related pain: Code(s): G89.3 - Neoplasm related pain (acute) (chronic) Status: Acute Assessment and Plan: The patient has pain at the side of a markedly enlarged lymph node on the right side of the neck. Patient very concerned on increased size and subsequent increase in pain despite some treatment as outpatient with chemo/radiation. Patient encouraged to resume chemo and radiation CL as that will likely help shrink the mass although he wants an alternative treatment since this one isn't working. I explained to him sometimes it takes time. He requests a biopsy. -Continue [place] prn, as well as, Dilaudid for breakthrough pain. -Cautioned on excessive use of NSAIDs -Await Oncology's recommendations (2) Head and neck cancer: Code(s): C76.0 - Malignant neoplasm of head, face and neck Status: Acute Assessment and Plan: Mass is 1-2 CM larger than prince, defer to Dr. Mcmahan -Plan is as detailed above. (3) Chronic anemia: Code(s): D64.9 - Anemia, unspecified Status: Acute Assessment and Plan: Hemoglobin and hematocrit are stable on review of previous labs. 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 He does not want any biopsy or w/u until his neck mass and macroadenoma are addressed which is understandable since it is stable Time Spent With Patient Time with patient: 25 - 35 minutes Subjective Date/time seen: 10/03/20 14:14 Interval history: Pt is a 60 y/o male here for worsening pain and swelling to his neck. Pt was seen today and has many questions about his plan of care for his cancer treatment that I was unable to answer and told him that Dr. Mcmahan would be in either today or tomorrow. We did discuss his thyroid nodule and macroadenoma. He has already seen somebody for his macroadenoma at [facility]. Embolus, he states that the pain medication isn't working very long and that he has significant pain in his right neck area any also has a slight headache. He would like another treatment plan and is discouraged by his lack of improvement. He denies chest pain, shortness of breath, fevers, chills, nausea, vomiting, diarrhea or constipation. Review of Systems Review of Systems: All systems reviewed & are unremarkable except as noted in HPI and below Exam Narrative: Exam Narrative: General: Well developed well nourished patient in NAD HEENT: A large right-sided neck mass of a kidney with slight erythema (likely from radiation) and no pulsing. Neck: Large neck mass as above Neuro: Alert and oriented x4 CV:RRR Resp:CTA Abd: Soft, non distended. No pain to palpation. Positive bowel sounds Extremities: No swelling, erythema, or pain to palpation. Objective Data Vital Signs Vital Signs: Vital Signs - 24 hr 10/02/20 21:07 10/03/20 05:27 Temperature 97.8 F 96.6 F L Pulse Rate 68 64 Respiratory Rate 16 18 Blood Pressure 121/71 132/76 Pulse Oximetry 97 98 Intake/Output Intake/Output: Intake & Output 09/30/20 10/01/20 10/02/20 10/03/20 23:59 23:59 23:59 23:59 Intake Total 1790 2880 720 Output Total 1800 1650 Balance 1790 1080 -930 Meds/Results Medications: Active Medications Generic Name Dose Route Start Last Admin Trade Name Freq PRN Reason Stop Dose Admin Acetaminophen 650 mg 10/01/20 12:08 Acetaminophen
[2020-10-03] MEDS: oxyCODONE HCL (*CRX) 5 MG TAB IR PO ×2 (16:29→21:08)
--- NOTE | 2020-10-03 18:39 | PDONCCN ---
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 Patient had delayed in starting treatment due to COVID-19 and difficulties with scheduling dental evaluation. He started radiation territory treatment on August 29, 2020. He received only round of chemotherapy on August 31, 2020. Patient had been noncompliant and missed several appointments for radiation therapy and in did not keep his 2nd appointment of chemotherapy on September 21. He came back into the hospital with right-sided neck pain with worsening of the right neck lymphadenopathy as expected since patient had not been receiving any treatment due to his noncompliance. Luckily he has been able to swallow and eat well. He has been taking his pain medication on a regular basis without much improvement in the pain. He was admitted to the hospital for pain control. Review of Systems - Review of Systems All systems reviewed & are unremarkable except as noted in HPI and bel - Neurologic Reports system reviewed and no additional complaints, except as documented PMFSH Medical History: Medical History (Last Updated 10/01/20 @ 21:08 by Maria Fernanda Renee PA-C) Arthritis Chronic anemia Coronary artery disease Degenerative disc disease Gastroesophageal reflux disease Head and neck cancer Stage MARIANA ([id number]) well-differentiated squamous cell carcinoma, status post excision of right lateral tongue mass with positive margins. He has only received 1 fraction of radiation 1 chemotherapy treatment as of 10/01/2020. He is followed by Drs. Mcmahan and Gabriella. Hepatitis C History of kidney stones History of myocardial infarction Hypertension Psychiatric disorder Bipolar disorder, depression, and anxiety. Shingles Onset Date: ~2004 Surgical History: Surgical History (Last Reviewed 10/01/20 @ 13:31 by Maria Fernanda Renee PA-C) History of cholecystectomy History of cystoscopy With ureteroscopy and stone extraction. History of orthopedic surgery Repair of left clavicle dislocation. Family History: Family History (Last Reviewed 10/01/20 @ 13:31 by Maria Fernanda Renee PA-C) Grandparent Cancer Maternal Grandmother Father Cerebrovascular accident Dementia Sibling Diabetes mellitus Kidney disease - Social History Social History: Social History (Last Updated 10/01/20 @ 21:09 by Maria Fernanda Renee PA-C) Alcohol Use: Alcohol intake: never Substance Use: Substance use: former Substance use type: marijuana Other substance usage details: when first diagnosed - used it for nausea Last use: last alcohol 8 months ago Others: Spiritual care concerns: No Smoking Status: Smoking status: Former smoker Second hand tobacco smoke exposure: Yes Smoking Pack-years: Smoking packs per day: 1 Smoking cigarettes per day: 20.0 Years smoked: 30 Smoking pack-years: 30.00 Meds Home Medications Medication Instructions Recorded Confirmed Type diclofenac sodium [Voltaren] 2 g TOPICAL QID PRN 05/10/20 10/01/20 History multivitamin 1 tablet PO DAILY 05/10/20 10/01/20 History hydrocodone-acetaminophen 1 - 2 tablet PO Q4-6H PRN 08/31/20 10/01/20 History naproxen sodium [Aleve] 220 mg PO BID PRN 08/31/20 10/01/20 History prochlorperazine maleate 10 mg PO Q6H PRN 08/31/20 10/01/20 History loperamide [Imodium A-D] 2 mg PO Q6H PRN #7 tablet 09/08/20 10/01/20 Rx ondansetron 4 mg PO Q6H PRN #14 tablet 09/08/20 10/01/20 Rx Allergies Allergy/AdvReac Type Severity Reaction Status Date / Time No Known Allergies Allergy Verified 10/01/20 13:33 Results
[2020-10-03] MEDS: HYDROmorphone HCL INJ (*CRX) 1 MG/ML SYR IV PUSH (20:09)
[2020-10-03 20:50] VITALS: BP 131/82; PULSE 72; RESP 16; TEMP 36.5; O2SAT 98
[2020-10-04] MEDS: oxyCODONE HCL (*CRX) 5 MG TAB IR PO ×3 (02:30→12:12)
[2020-10-04] MEDS: HYDROmorphone HCL INJ (*CRX) 1 MG/ML SYR IV PUSH ×2 (03:24→08:53)
[2020-10-04 05:49] LABS: Hematocrit 35.4 % (42.0-52.0); Mean Corpuscular HGB Conc 33.9 g/dl (32-36); Mean Corpuscular Hemoglobin 30.2 pg (26-34); Mean Corpuscular Volume 88.9 fl (80-100); Mean Platelet Volume 10.1 fl (7.4-10.4); Platelet Count Result 229 k/mm3 (150-375); Red Blood Count 3.98 M/mm3 (4.6-6.20); Red Cell Distribution Width 13.2 % (11.5-14.5)
[2020-10-04 06:05] LABS: Anion Gap 6 mmol/L (8-16); Blood Urea Nitrogen 14 mg/dL (9-20); Calcium 9.1 mg/dL (8.4-10.2); Carbon Dioxide 31 mmol/L (22-30); Chloride 99 mmol/L (98-107); Estimated CRCL calculation 125 ml/min; Estimated Glomerular Filt Rate > 60; Glucose 106 mg/dL (75-110); Potassium 4.1 mmol/L (3.4-5.0); Sodium 136 mmol/L (137-145)
[2020-10-04 06:42] VITALS: BP 107/57; PULSE 56; RESP 14; TEMP 36.5; O2SAT 97
[2020-10-04 08:47] VITALS: BP 114/67
[2020-10-04] MEDS: MULTIVITAMINS THERAPEUTIC TAB (*BKC) 1 TABLET PO (08:50)
[2020-10-04] MEDS: polyethylene glycoL 3350 17 GM POWD.PACK PO (08:51)
--- NOTE | 2020-10-04 11:35 | P.RADPN_ITS ---
Radiation Narrative Note - Date/Time Date/Time: 10/04/20 11:35 - Diagnosis Diagnosis: Chinmay Suggs is a 60 y.o. male with a stage MARIANA (pT2 cN2 M0) well-differentiated squamous cell carcinoma, status post excision with positive margins. He had a 3- month delay in starting treatment due to COVID-19 and difficulty scheduling dental evaluation and treatment. He is status post multiple dental extractions and returned with an enlarged 5.7 cm FDG-avid lymph node in the right internal jugular chain and a 2.4 cm thyroid nodule. He started definitive chemoradiotherapy and received 5 fractions over 1 week 08/29/2020 through 09/02/2020 out of the planned 35 fractions. He then stopped coming for treatment. Multiple attempts to reach him and assist him in resolving conflicts proved unsuccessful. Unsurprisingly, he is now admitted with worsening cervical lymphadenopathy. Of note, his pituitary tumor has been evaluated by Dr. Joey Fontaine at [facility]. - Narrative Narrative: I plan to see Mr. Suggs in person later today. He called the department and I had a lengthy discussion over the phone regarding the current status of his disease. Due to the limited treatment he received and then stopped coming for treatment, he is experiencing the expected course of his cancer. He reports that the mass enlarged after his initial treatment. I tried to explain the concept of accelerated repopulation of tumor that can occur after starting treatment and then stopping. I explained to him that if he would like to undergo treatment, we would need to repeat his simulation and radiation treatment planning and he would need to be compliant with his daily treatments and chemotherapy. He stated that he would like a biopsy to prove that this is cancer. He thinks it is all fluid. I explained that while there may be some necrotic fluid in the malignant lymph node as it outgrows its blood supply internally, it is most certainly still cancer. He then stated he wanted the fluid removed. He also argued that he had received 2 or 3 weeks of radiation despite my confirming to him that he only received 5 fractions. I will stop by and visit with him in person later today. I am not sure my recommendations are holding any weight in his mind.
--- NOTE | 2020-10-04 13:19 | PC.NURSE ---
Went in with Janis ROJAS, to speak with pt about plan of care, Pt was unhappy with current plan of care. Wants more done with the lymph node mass on the neck. Dr. Mcmahan has made his recommendations and it was told to the pt by Janis that he has the right to get a second opinion if he is not happy with Dr. Mcmahan's plan. Dr. Mcmahan is encouraging more treatments, chemo/radiation, done to the neck. Pt wants mass drained/biopsied . Per pt, he stated that the [employer] tech had said there was a possibility of fluid being present on his neck and that is why he wants it drained/more done to the area.
[2020-10-04 14:00] VITALS: BP 140/82; PULSE 66; RESP 14; TEMP 36.3; O2SAT 100
--- NOTE | 2020-10-04 14:35 | PM.DS ---
DS: Admitting Diagnosis Admitting Diagnosis Admitting Diagnosis: neck mass DS: Discharge Diagnosis Discharge Diagnosis (1) Head and neck cancer: Code(s): C76.0 - Malignant neoplasm of head, face and neck Status: Acute Assessment and Plan: Plan for core biopsy and fluid drainage (symptomatic) outpatient -referral for ENT for possible surgical treatment -recommended patient follow his treatment guideline to ensure best possible outcome -CT of the head neck showed that Mass is 1-2 CM larger than February (2) Cancer related pain: Code(s): G89.3 - Neoplasm related pain (acute) (chronic) Status: Acute Assessment and Plan: The patient has pain at the side of a markedly enlarged lymph node on the right side of the neck. Patient very concerned on increased size and subsequent increase in pain despite some treatment as outpatient with chemo/radiation. Patient encouraged to resume chemo and radiation CL as that will likely help shrink the mass although he wants an alternative treatment since this one isn't working. I explained to him sometimes it takes time. He requests a biopsy. -see above -pain medication prescribed with Education (3) Chronic anemia: Code(s): D64.9 - Anemia, unspecified Status: Acute Assessment and Plan: Hemoglobin and hematocrit are stable on review of previous labs. (4) Leukocytosis: Code(s): D72.829 - Elevated white blood cell count, unspecified Status: Acute Assessment and Plan: WBC improved to 10.0 -No evidence of underlying infection (5) Macroadenoma: Code(s): D36.9 - Benign neoplasm, unspecified site Status: Acute Assessment and Plan: Known, pt sees surgeon at [facility] and follows with them -pt has slight headaches and some vision pain but the GATES are tolerable (6) Thyroid nodule: Code(s): E04.1 - Nontoxic single thyroid nodule Status: Acute Assessment and Plan: Biopsy pending, follow-up with Dr. Mcmahan DS: Summary Hospital Course Hospital Course: Patient is a 60-year-old male with history of head and neck cancer who is not always compliant with his treatment schedule who presented emergency room for worsening pain and swelling to the right neck mass. Patient was admitted to the hospitalist service for pain control. No infection was suspected and he had no problems with swallowing or breathing. His pain was being treated with IV Dilaudid as well as oral narcotics. He was able to be transitioned to oral narcotics for discharge. He requested a biopsy and drainage of the area which will be done outpatient since it was not able to be done inpatient. An order was given as well as the phone number to make the appointment. He also saw his oncologist and radiation oncologist while he was admitted and they are going to send him to ENT for possible excisional surgery. All in all, the patient was feeling better the day of discharge and understood the next steps in his treatment care. He was educated about the worrisome signs and symptoms come back to emergency room for and was discharged in stable condition. of note, pt underwent a thyroid bx and will follow up with Dr. Mays for results. Status at Discharge Functional status at discharge: independent ambulation Overall status at discharge: patient is not back to baseline Time Spent with Patient Time attestation: Total time spent providing and/or coordinating discharge services:38 min Time spent: Greater than 30 minutes Exam Narrative: Exam Narrative: General: Well developed well nourished patient in NAD HEENT: A large non pulsating right-sided neck mass with minimal erythema Neck: Large neck mass as above Neuro: Alert and oriented x4 CV:RRR Resp:CTA Abd: Soft, non distended. No pain to palpation. Positive bowel sounds Extremities: No swelling, erythema, or pain to palpation. DS: Data Data Completed an
--- NOTE | 2020-10-04 15:36 | PC.NURSE ---
Observe care and reviewed documentation completed by Andrew RALPH student nurse [phone]
--- NOTE | 2020-10-04 16:46 | PDRADONCCN ---
Recommendations 1. Agree with discharge and outpatient management. 2. Await thyroid biopsy results. 3. Biopsy and aspiration of necrotic lymph node (right jugular chain) as outpatient. 4. Referral to ENT. I had a lengthy discussion with Mr. Suggs and he is now amenable to neck dissection. I will discuss with his ENT. 5. Probable post-operative chemoradiotherapy within 4-6 weeks after neck dissection. Impression 60 y.o. male with a stage MARIANA (pT2 cN2 M0) well-differentiated squamous cell carcinoma arising in the right oral tongue, status post excision with positive margins, noncompliant with postoperative therapy, now with massive and painful neck recurrence. PMF - Date/Time Seen 10/04/20 16:46 - Identifying Data Chinmay Suggs is a 60 y.o. male with a stage MARIANA (pT2 cN2 M0) well-differentiated squamous cell carcinoma arising in the right oral tongue. - History of Present Illness Vlad initially presented with a white plaque on the right lateral tongue a several months ago while he was incarcerated. ?He was treated for thrush after he was released from snf but did not see any improvement. ?The tongue lesion continued to enlarge and he was seen in the ER at [facility] in November 2019. Biopsy of the right side of the tongue on 12/01/2019 revealed fungal glossitis. ?On 02/17/2020, he underwent excision of the right tongue mass under the direction of Dr. Gatito Du. Pathology revealed well-differentiated squamous cell carcinoma which extended to the left lateral margin and closely approximated the right lateral margin. ?No lymph nodes were submitted. ?Unifocal disease with tumor measured 2 cm. ? PET scan on 03/04/2020 showed asymmetric FDG activity along the right oral tongue along the lingual surface of the mandible along with mildly FDG avid small cervical lymph node none of which are pathologically enlarged with low level of activity. ?There is no evidence of distant metastasis but there is a hypermetabolic suprasellar mass with a differential diagnosis including macroadenoma and craniopharyngioma. On 03/11/2020, he underwent an additional right oral tongue biopsy which showed benign ulceration without any malignancy. He had a 3-month delay in starting treatment due to COVID-19 and difficulty scheduling dental evaluation and treatment. He is status post multiple dental extractions and returned with an enlarged 5.7 cm FDG-avid lymph node in the right internal jugular chain and a 2.4 cm thyroid nodule. He started definitive chemoradiotherapy and received 5 fractions over 1 week 08/29/2020 through 09/02/2020 out of the planned 35 fractions. He then stopped coming for treatment. Multiple attempts to reach him and assist him in resolving conflicts proved unsuccessful. Unsurprisingly, he is now admitted with worsening cervical lymphadenopathy and severe pain which he rates at 9-10 out of 10. Consultation was requested for evaluation regarding his treatment management. He had a biopsy of his thyroid nodule today and is being discharged with pain medications after my visit this afternoon. Of note, his pituitary tumor has been evaluated by Dr. Joey Fontaine at [facility]. MRI brain has been ordered at [facility] expected around 12/05/2020 but has not been scheduled. - Medical History Medical History (Last Updated 10/01/20 @ 21:08 by Maria Fernanda Renee PA-C) Arthritis Chronic anemia Coronary artery disease Degenerative disc disease Gastroesophageal reflux disease Head and neck cancer Stage MARIANA ([id number]) well-differentiated squamous cell carcinoma, status post excision of right lateral tongue mass with positive margins. He has only received 1 fraction of radiation 1 chemotherapy treatment as of 10/01/2020. He is followed by Drs. Mcmahan and Gabriella. Hepatitis C History of kidney stones History of myocardial infarction Hypertension Psychiatric disorder Bipolar disorder, depression, and anxiety. Shingles Onset Date: ~2004
--- NOTE | 2020-10-06 13:22 | PC.NURSE ---
Thyroid bx shows benign follicular nodule. CRYSTAL Reddy available.
== END 2020-10-04 16:45 | disposition home or self-care (01) | DRG 110 ==
LOC: ANHED 12:08 → ANH3MED 12:27
PROVIDERS: Physician Assistant; Admitting Provider Family Medicine; Emergency Provider Family Medicine; PCP Family Medicine; Visit Provider Internal Medicine
DX: C76.0 Malignant neoplasm of head, face and neck (principal); G89.3 Neoplasm related pain (acute) (chronic); E04.1 Nontoxic single thyroid nodule; D64.9 Anemia, unspecified; D72.829 Elevated white blood cell count, unspecified; M19.90 Unspecified osteoarthritis, unspecified site; I25.10 Atherosclerotic heart disease of native coronary artery without angina pectoris; K21.9 Gastro-esophageal reflux disease without esophagitis; F31.9 Bipolar disorder, unspecified; I25.2 Old myocardial infarction; Z86.19 Personal history of other infectious and parasitic diseases; Z90.49 Acquired absence of other specified parts of digestive tract; Z87.891 Personal history of nicotine dependence; Z91.19 Patient's noncompliance with other medical treatment and regimen
CPT/HCPCS: 10005; 36415; 70491; 71260; 80048; 80053; 83735; 84443; 85025; 85027; 88173; 88305; 96361; 96372; 96374; 96375; 96376; 99285; A9270; G0378; G0379; J1170; J1650; J2270; J2405; J7030; Q9967